=== PATIENT | female | born 1990 | race American Indian/Alaskan Native ===

== ENCOUNTER 2021-09-15 14:21 | Emergency (ER) | payer BC, MEDICAID ==
[2021-09-15 14:29] VITALS: BP 146/78
--- NOTE | 2021-09-15 16:30 | Emergency Department Report ---
ED General Adult HPI - General Chief complaint: Neuro Symptoms/Deficit Stated complaint: LT SIDEFACE TINGLE/NAUSEA Time Seen by Provider: 09/15/21 14:51 Source: patient Mode of arrival: Ambulatory Limitations: No Limitations - History of Present Illness Initial comments: 31-year-old -[place] female patient presents with complaints of intermittent left facial tingling x3 to 4 weeks. Patient states the face sometimes also becomes numb and her symptoms last either a few seconds or a few minutes. She denies any vision changes, headache, numbness/tingling/weakness in her limbs, difficulty with speech/ambulation, memory loss, confusion, or history of head trauma. No facial pain per patient. She has a past medical history of GERD and takes omeprazole intermittently. Patient also denies frequent alcohol use or URI symptoms. - Related Data Allergies Allergy/AdvReac Type Severity Reaction Status Date / Time No Known Allergies Allergy Unverified 09/15/21 14:23 ED Review of Systems ROS: Stated complaint: LT SIDEFACE TINGLE/NAUSEA Other details as noted in HPI Constitutional: denies: chills, fever, malaise Eyes: denies: eye pain, vision change Respiratory: denies: cough Cardiovascular: denies: chest pain Gastrointestinal: denies: nausea, vomiting Musculoskeletal: denies: back pain Skin: denies: rash, change in color Neurological: paresthesias. denies: headache, weakness ED Past Medical Hx - Past Medical History Previous Medical History?: No - Surgical History Past Surgical History?: No ED Physical Exam - General Limitations: No Limitations General appearance: alert, in no apparent distress, obese - Head Head exam: Present: atraumatic, normocephalic - Eye Eye exam: Present: normal appearance, PERRL, EOMI. Absent: scleral icterus - Neck Neck exam: Present: normal inspection - Respiratory Respiratory exam: Absent: respiratory distress - Cardiovascular Cardiovascular Exam: Present: regular rate - Extremities Exam Extremities exam: Present: full ROM - Neurological Exam Neurological exam: Present: alert, oriented X3, CN II-XII intact, normal gait. Absent: motor sensory deficit - Expanded Neurological Exam Expanded Cerebellar function: Finger to Nose: Normal, Heel to Koo: Normal, Romberg: Normal Sensory exam: Upper Extremity Light Touch: Normal, Lower Extremity Light Touch: Normal Motor strength exam: RUE: 4, LUE: 4, RLE: 4, LLE: 4 Best Eye Response (Russell): (4) open spontaneously Best Motor Response (Russell): (6) obeys commands Best Verbal Response (Russell): (5) oriented Hood Total: 15 - Psychiatric Psychiatric exam: Present: normal affect, normal mood - Skin Skin exam: Present: warm, dry, intact, normal color. Absent: rash ED Course Vital Signs 09/15/21 14:27 Temperature 98.9 F Pulse Rate 84 Respiratory 18 Rate Blood Pressure 146/78 O2 Sat by Pulse 100 Oximetry ED Medical Decision Making - Medical Decision Making 31-year-old -[place] female patient presents with complaints of intermittent left facial tingling x3 to 4 weeks. Patient states the face sometimes also becomes numb and her symptoms last either a few seconds or a few minutes. She denies any vision changes, headache, numbness/tingling/weakness in her limbs, difficulty with speech/ambulation, memory loss, confusion, or history of head trauma. No facial pain per patient. She has a past medical history of GERD and takes omeprazole intermittently. Patient also denies frequent alcohol use or URI symptoms. Upon further questioning, patient states she does not consume meat and only eats fish products maybe 2-3 times a month. Neuro exam is normal. Suspect vitamin B deficiency given history of uncontrolled GERD and lack of red meat intake. Recommend OTC vitamin B12 and follow-up with primary care doctor for further evaluation and and treatment. She is well-appearing, her vitals within normal limits, she is stable for discharge home. Discussed in detail signs and symptoms that should prompt immediate return to the ED with patient verbalized understanding. Critical care attestation.: If time is entered above; I have spent that time in minutes in the direct care of this critically ill patient, excluding procedure time. ED Disposition Clinical Impression: Facial paresthesia Disposition: HOME / SELF CARE / HOMELESS Is pt being admited?: No Condition: Stable Instructions: Paresthesia Referrals: PRIMARY CARE, [Referring] - 3-5 Days
== END 2021-09-15 17:11 | disposition home or self-care (01) ==
LOC: ED 14:21
DX: R20.2 Paresthesia of skin (principal)
CPT/HCPCS: 99281